=== PATIENT | male | born 1945 | race Caucasian/White ===

== ENCOUNTER → 2023-11-10 10:27 | Outpatient (REF) | payer MEDICARE, SELFPAY ==
[2023-11-10 12:47] LABS: % Basophils 0.6 % (0-2); % Eosinophils 1.8 % (0-6); % Immature Granulocytes 0.3 % (0-0.5); % Monocytes 7.2 % (1.7-9.3); % Neutrophils 74.1 % (42.2-75.2); Absolute Eosinophils 0.1 10^3/uL (0-0.7); Absolute Lymphocytes 1.2 10^3/uL (1.2-3.4); Absolute Monocytes 0.5 10^3/uL (0.1-0.6); Absolute Neutrophils 5.4 10^3/uL (1.4-6.5); Hematocrit 43.9 % (39.0-52.0); Hemoglobin 14.8 g/dL (13.0-18.0); Mean Corp Hgb Conc. 33.7 g/dL (33.0-37.0); Mean Corpuscular Hgb 32.5 pg (27.0-31.0); Mean Corpuscular Volume 96.3 fL (80.0-94.0); Mean Platelet Volume 11.4 fL (7.4-10.4); Nucleated Red Blood Cells % 0 % (-); Platelet Count 191 10^3/uL (130-400); Red Blood Cell Count 4.56 10^6/uL (4.70-6.10); Red Cell Dist. Width 12.4 % (11.5-14.5); White Blood Cell Count 7.3 10^3/uL (4.8-10.8)
[2023-11-10 12:57] LABS: Erythrocyte Sed Rate 12 mm/hour (0-20)
[2023-11-10 13:21] LABS: ALT (SGPT) 17 U/L (0-50); AST (SGOT) 25 U/L (17-59); Alkaline Phosphatase 67 U/L (38-126); Blood Urea Nitrogen 20 mg/dl (9-20); Calcium 9.3 mg/dl (8.4-10.2); Carbon Dioxide 27 mmol/L (22-30); Chloride 102 mmol/L (98-107); Glucose 86 mg/dl (70-99); Potassium 4.9 mmol/L (3.5-5.1); Sodium 142 mmol/L (135-145); Total Bilirubin 0.7 mg/dl (0.2-1.3); Total Protein 6.7 g/dl (6.3-8.2); eGFR > 60.00
[2023-11-12 08:03] LABS: ANA, IgG Reflex to HEp-2 None Detected (None Detected)
[2023-11-12 14:54] LABS: Rheumatoid Agglutinin Less Than 10 IU (<10 IU)
[2023-11-12 15:01] LABS: Lyme Antibody Screen, EIA Negative (Negative)
== END ==
LOC: HWLAB 10:27
PROVIDERS: REFERRING PHYSICIAN Family Medicine
DX: M25.50 Pain in unspecified joint (principal)
CPT/HCPCS: 36415; 80053; 85025; 85652; 86038; 86140; 86430; 86618

== ENCOUNTER → 2023-12-07 11:04 | Outpatient (REF) | payer MEDICARE, SELFPAY | LOC: HWRAD 11:04 | PROVIDERS: ATTENDING PHYSICIAN Physician Assistant; FAMILY PHYSICIAN Family Medicine | DX: M81.0 Age-related osteoporosis without current pathological fracture (principal) | CPT/HCPCS: 77080 ==

== ENCOUNTER → 2023-12-10 09:31 | Outpatient (REF) | payer MEDICARE, SELFPAY ==
[2023-12-10 10:58] LABS: Creatine Phosphokinase 59 U/L (55-170)
[2023-12-10 18:34] LABS: Hepatitis B Surface Antigen Negative (Negative)
[2023-12-10 18:52] LABS: Hepatitis B Core Ab, Total Negative (Negative); Hepatitis B Surface Antibody Positive
[2023-12-11 22:49] LABS: HLA-B27 Negative (Negative)
[2023-12-12 01:35] LABS: HCV Quant by NAAT IU/mL Not Detected; HCV Quant by NAAT Interp Not Detected (Not Detected); HCV Quant by NAAT Log IU/mL Not Detected log IU/mL
[2023-12-12 09:27] LABS: Quantiferon Mitogen minus NIL 9.96 IU/mL; Quantiferon NIL 0.04 IU/mL; Quantiferon Plus TB1 minus NIL 0.04 IU/mL (<=0.34); Quantiferon Plus TB2 minus NIL 0.01 IU/mL (<=0.34); Quantiferon TB Gold Plus Negative (Negative)
== END ==
LOC: REG 09:31
PROVIDERS: ATTENDING PHYSICIAN Physician Assistant; FAMILY PHYSICIAN Family Medicine
DX: J00-J99 Diseases of the respiratory system (principal); M06.4 Inflammatory polyarthropathy; M08.1 Juvenile ankylosing spondylitis; M25.50 Pain in unspecified joint; R53.1 Weakness; Z11.59 Encounter for screening for other viral diseases
CPT/HCPCS: 36415; 82550; 86480; 86704; 86706; 86812; 87340; 87522

== ENCOUNTER 2024-02-21 10:06 | Emergency (ER) | payer MEDICARE, SELFPAY ==
[2024-02-21 10:10] VITALS: BP 120/81
[2024-02-21] MEDS: NSS 1000 IV (11:10)
[2024-02-21 11:11] VITALS: BP 118/68
--- NOTE | 2024-02-21 11:12 | ED.GENMED ---
History of Present Illness
General
Chief Complaint: Abdominal Symptoms
Source: patient
Time Seen by Provider: 02/21/24 11:01
History of Present Illness
History of Present Illness:
78-year-old male with past medical history of rheumatoid arthritis presenting to the emergency department for evaluation of nausea vomiting and diarrhea that has been constant over the last 4 days, last night believes he could have potentially
syncopized and still felt unwell this morning prompting to bring him to the ER for further evaluation patient states he had 1 episode of watery diarrhea this morning. He denies any pain, urinary symptoms, recent travel, known sick contacts,
recent antibiotics however does note that at the end of November he had been started on hydroxychloroquine for his rheumatoid arthritis, developed a small rash and had this medication stopped but then restarted the hydroxychloroquine about 2
weeks ago. No other concerns at this time.
Past History
Past History
ED Past Medical History: Psychiatric (PTSD) and Other (Rheumatoid arthritis)
ED Past Surgical History: Orthopedic
Social History
Tobacco: Non-smoker
Alcohol: None
Drug: None
Personal:
Living: with family
Review of Systems
Review of Systems
All Other Systems: ROS reviewed and negative except as documented in HPI and ROS
Phy Exam
Physical Exam
Physical Exam:
GENERAL: Alert , in no apparent distress, somewhat pale
EYE: clear conjunctiva b/l
HEAD: NCAT
ENT: o/p clr, mmm.
CARDIAC: Regular rate and rhythm .
LUNGS: Clear breath sounds bilaterally, no acute respiratory distress, no wheezes/rales/rhonchi
ABDOMEN: Soft, without focal tenderness, no r/g, no cvat
NEUROLOGICAL: Alert and oriented
SKIN: Warm and dry, skin intact.
MUSCULOSKELETAL: No edema, well perfused.
PSYCH: Normal and appropriate interaction.
Scores
Heart Failure Risk
Heart Failure Risk Score: Not Applicable
Heart Score for Chest Pain Patients
STEMI patient?: Not applicable
Withdrawal Assessment of Alcohol
Withdrawal Assessment Completed?: Not applicable
Course
Orders/Labs/Results
Orders:
Orders
02/21/24 10:14
EKG [Electrocardiogram (*1)] Urgent
Reason for Study: Fatigue / Weakness
EKG- Treatment ONCE
02/21/24 11:02
Orthostatic VS- Treatment ONCE
STOOL [C difficile Antigen & Toxins] Urgent
JODY Source: Feces/Stool
Specimen Description:
Stool Culture Urgent
JODY Source: Feces/Stool
Specimen Description:
0.9% Sodium Chloride 1000 ml [Nss] 1,000 ml IV BOLUS
02/21/24 11:07
Complete Blood Count/With Diff Urgent
02/21/24 11:38
Comprehensive Metabolic Panel Urgent
Lipase Urgent
Abnormal Lab Results
02/21/24 02/21/24
11:07 11:38
WBC 4.7 L 10^3/uL
(4.8-10.8)
MCH 32.0 H pg
(27.0-31.0)
MPV 11.7 H fL
(7.4-10.4)
Absolute Lymphs (auto) 1.1 L 10^3/uL
(1.2-3.4)
Total Protein 5.7 L g/dl
(6.3-8.2)
Albumin 3.4 L g/dl
(3.5-5.0)
02/21/24 11:07
02/21/24 11:38
Vital Signs
Initial and Last Documented VS:
Initial Vital Signs
Temp Pulse Resp BP Pulse Ox
99.0 F 76 18 120/81 99
02/21/24 10:10 02/21/24 10:10 02/21/24 10:10 02/21/24 10:10 02/21/24 10:10
Last Documented Vital Signs
Temp Pulse Resp BP Pulse Ox
99.0 F 76 18 131/74 96
02/21/24 10:10 02/21/24 10:10 02/21/24 10:10 02/21/24 12:00 02/21/24 12:30
MDM/Problems Addressed
Differential Diagnosis Includes:
Gastroenteritis, norovirus, C. difficile colitis, other bacterial diarrhea, colitis, electrolyte derangement, dehydration, vagal event, orthostasis
MDM/Problems Addressed:
78-year-old male presenting to the ER for evaluation of 4 days of nausea vomiting and diarrhea, last night believes he could have potentially syncopized due to feeling generally weak. Patient is without any fevers or symptoms today although he
does note some watery stool prior to arrival. Only new medication would be hydroxychloroquine from about 2 weeks ago, do not believe this to be related to symptoms but certainly possible. Patient currently hemodynamically stable. Will check labs
and treat with fluid in the time being. Reassessment following. Will attempt for stool studies.
*Pulse Oximetry
Patient hypoxic: no
*Critical Care Note
Total Time (30-74mins, 75-104mins- exclusive of procedures): Not Applicable
Data Reviewed
Review of Other/Old Records Reveals: Labs
Patient Management
Escalation/DeEscalation of care consider admission/obs:
On reevaluation patient is feeling much better following IV fluids. He remains hemodynamically stable. Patient had a very mild leukopenia with a white blood cell count of 4.7. Electrolytes and kidney function within normal limits. Patient unable
to provide a stool sample. I did offer to allow him to stay in the ER for longer duration if he so chooses and attempts to obtain a stool study but patient prefers to be discharged home. Advise close follow-up with primary care provider. Aware of
return precautions
ED Attending Note
-
Portions of this chart may have been created with voice recognition software.� Occasional wrong word or��sound alike� substitutions may have occurred due to the inherent limitations of voice recognition software.
Discharge Plan
Departure
Patient Disposition: Home (Routine Discharge)
Date of Disposition: 02/21/24
Time of Disposition: 12:39
Patient with high blood pressure during this ER visit?: No
Discharge Problem:
Nausea and vomiting, Diarrhea
Instructions: Nausea and Vomiting, Adult (DC)
Referrals:
Adilia Ochoa, [Family Provider] -
Interventions
Interventions:
*Risk Screen - Suicide Last Done: 02/21/24 10:10
*General Assessment Last Done: 02/21/24 10:10
*Neglect/Abuse Screening Last Done: 02/21/24 10:10
*ED COVID-19 Vaccine History Last Done: 02/21/24 10:10
NL-Jhnzto-Idrcyeofjc Assessment Last Done: 02/21/24 11:23
Discharge Date and Time
Print Language: MOSOTHO
[2024-02-21 11:17] VITALS: BP 119/71; BP 120/70; BP 127/77; PULSE 58; PULSE 60; PULSE 70
[2024-02-21 11:19] VITALS: BP 127/77
[2024-02-21 11:20] VITALS: BP 120/70
[2024-02-21 11:28] LABS: % Basophils 0.2 % (0-2); % Eosinophils 1.1 % (0-6); % Immature Granulocytes 0.4 % (0-0.5); % Lymphocytes 23.8 % (20.5-51.1); % Monocytes 8.4 % (1.7-9.3); % Neutrophils 66.1 % (42.2-75.2); Absolute Eosinophils 0.1 10^3/uL (0-0.7); Absolute Lymphocytes 1.1 10^3/uL (1.2-3.4); Absolute Monocytes 0.4 10^3/uL (0.1-0.6); Absolute Neutrophils 3.1 10^3/uL (1.4-6.5); Hematocrit 46.1 % (39.0-52.0); Hemoglobin 15.8 g/dL (13.0-18.0); Mean Corp Hgb Conc. 34.3 g/dL (33.0-37.0); Mean Corpuscular Volume 93.5 fL (80.0-94.0); Mean Platelet Volume 11.7 fL (7.4-10.4); Nucleated Red Blood Cells % 0 % (-); Platelet Count 142 10^3/uL (130-400); Red Blood Cell Count 4.93 10^6/uL (4.70-6.10); Red Cell Dist. Width 13.9 % (11.5-14.5); White Blood Cell Count 4.7 10^3/uL (4.8-10.8)
[2024-02-21 11:59] LABS: ALT (SGPT) 21 U/L (0-50); AST (SGOT) 29 U/L (17-59); Albumin 3.4 g/dl (3.5-5.0); Alkaline Phosphatase 54 U/L (38-126); Blood Urea Nitrogen 16 mg/dl (9-20); Calcium 8.5 mg/dl (8.4-10.2); Carbon Dioxide 23 mmol/L (22-30); Chloride 107 mmol/L (98-107); Glucose 90 mg/dl (70-99); Lipase 100 U/L (23-300); Potassium 4.4 mmol/L (3.5-5.1); Sodium 139 mmol/L (135-145); Total Protein 5.7 g/dl (6.3-8.2); eGFR 56.58
[2024-02-21 12:00] VITALS: BP 131/74
== END 2024-02-21 13:08 | disposition home or self-care (01) ==
LOC: EMR 10:06
PROVIDERS: Physician Assistant Medical; EMERGENCY PHYSICIAN Student in an Organized Health Care Education/Training Program; FAMILY PHYSICIAN Family Medicine
DX: R19.7 Diarrhea, unspecified (principal); R11.2 Nausea with vomiting, unspecified
CPT/HCPCS: 99284; 96360; 80053; 83690; 85025; 93005

== ENCOUNTER → 2024-05-04 07:09 | Outpatient (REF) | payer MEDICARE, SELFPAY ==
[2024-05-04 07:57] LABS: % Basophils 0.5 % (0-2); % Eosinophils 2.1 % (0-6); % Immature Granulocytes 0.2 % (0-0.5); % Lymphocytes 19.1 % (20.5-51.1); % Monocytes 6.5 % (1.7-9.3); % Neutrophils 71.6 % (42.2-75.2); Absolute Eosinophils 0.1 10^3/uL (0-0.7); Absolute Lymphocytes 1.1 10^3/uL (1.2-3.4); Absolute Monocytes 0.4 10^3/uL (0.1-0.6); Absolute Neutrophils 4.2 10^3/uL (1.4-6.5); Hematocrit 47.3 % (39.0-52.0); Hemoglobin 15.9 g/dL (13.0-18.0); Mean Corp Hgb Conc. 33.6 g/dL (33.0-37.0); Mean Corpuscular Hgb 32.8 pg (27.0-31.0); Mean Corpuscular Volume 97.5 fL (80.0-94.0); Mean Platelet Volume 11.7 fL (7.4-10.4); Nucleated Red Blood Cells % 0 % (-); Platelet Count 167 10^3/uL (130-400); Red Blood Cell Count 4.85 10^6/uL (4.70-6.10); White Blood Cell Count 5.8 10^3/uL (4.8-10.8)
[2024-05-04 08:18] LABS: C-Reactive Protein < 5.00 mg/L (0.0-10.00)
[2024-05-04 08:26] LABS: ALT (SGPT) 35 U/L (0-50); AST (SGOT) 29 U/L (17-59); Albumin 4.3 g/dl (3.5-5.0); Alkaline Phosphatase 66 U/L (38-126); Blood Urea Nitrogen 23 mg/dl (9-20); Calcium 9.8 mg/dl (8.4-10.2); Carbon Dioxide 25 mmol/L (22-30); Chloride 106 mmol/L (98-107); Glucose 94 mg/dl (70-99); Potassium 5.1 mmol/L (3.5-5.1); Sodium 142 mmol/L (135-145); Total Bilirubin 0.8 mg/dl (0.2-1.3); Total Protein 6.5 g/dl (6.3-8.2); eGFR > 60.00
[2024-05-04 11:05] LABS: Erythrocyte Sed Rate 11 mm/hour (0-20)
== END ==
LOC: REG 07:09
PROVIDERS: ATTENDING PHYSICIAN Internal Medicine Rheumatology; FAMILY PHYSICIAN Family Medicine
DX: M06.00 Rheumatoid arthritis without rheumatoid factor, unspecified site (principal)
CPT/HCPCS: 36415; 80053; 85025; 85652; 86140

== ENCOUNTER → 2024-09-28 10:12 | Outpatient (REF) | payer MEDICARE, SELFPAY ==
[2024-09-28 10:31] LABS: Hematocrit 43.3 % (39.0-52.0); Hemoglobin 14.6 g/dL (13.0-18.0); Mean Corp Hgb Conc. 33.7 g/dL (33.0-37.0); Mean Corpuscular Volume 97.1 fL (80.0-94.0); Nucleated Red Blood Cells % 0 % (-); Platelet Count 167 10^3/uL (130-400); Red Cell Dist. Width 12.9 % (11.5-14.5)
[2024-09-28 11:18] LABS: ALT (SGPT) 22 U/L (0-50); AST (SGOT) 26 U/L (17-59); Albumin 4.1 g/dl (3.5-5.0); Alkaline Phosphatase 54 U/L (38-126); Blood Urea Nitrogen 20 mg/dl (9-20); Calcium 9.7 mg/dl (8.4-10.2); Carbon Dioxide 25 mmol/L (22-30); Chloride 107 mmol/L (98-107); Glucose 62 mg/dl (70-99); Potassium 4.9 mmol/L (3.5-5.1); Sodium 139 mmol/L (135-145); Total Protein 6.6 g/dl (6.3-8.2); eGFR > 60.00
[2024-09-28 11:20] LABS: C-Reactive Protein < 5.00 mg/L (0.0-10.00)
== END ==
LOC: REG 10:12
PROVIDERS: ATTENDING PHYSICIAN Internal Medicine Rheumatology; FAMILY PHYSICIAN Family Medicine
DX: M06.00 Rheumatoid arthritis without rheumatoid factor, unspecified site (principal); Z79.899 Other long term (current) drug therapy
CPT/HCPCS: 36415; 80053; 85025; 85652; 86140

== ENCOUNTER → 2024-12-07 07:38 | Outpatient (REF) | payer MEDICARE, SELFPAY ==
[2024-12-07 08:13] LABS: Hematocrit 43.7 % (39.0-52.0); Hemoglobin 14.4 g/dL (13.0-18.0); Mean Corp Hgb Conc. 33.0 g/dL (33.0-37.0); Mean Corpuscular Volume 102.6 fL (80.0-94.0); Nucleated Red Blood Cells % 0 % (-); Platelet Count 144 10^3/uL (130-400); Red Cell Dist. Width 14.2 % (11.5-14.5)
[2024-12-07 08:58] LABS: ALT (SGPT) 19 U/L (0-50); AST (SGOT) 24 U/L (17-59); Albumin 4.0 g/dl (3.5-5.0); Alkaline Phosphatase 58 U/L (38-126); Blood Urea Nitrogen 29 mg/dl (9-20); C-Reactive Protein < 5.00 mg/L (0.0-10.00); Calcium 9.2 mg/dl (8.4-10.2); Carbon Dioxide 26 mmol/L (22-30); Chloride 107 mmol/L (98-107); Glucose 96 mg/dl (70-99); Potassium 5.0 mmol/L (3.5-5.1); Sodium 139 mmol/L (135-145); Total Protein 6.2 g/dl (6.3-8.2); eGFR > 60.00
[2024-12-08 16:38] LABS: Hepatitis B Surface Antigen Negative (Negative)
[2024-12-08 16:56] LABS: Hepatitis C Antibody Negative (Negative)
== END ==
LOC: REG 07:38
PROVIDERS: ATTENDING PHYSICIAN Physician Assistant; FAMILY PHYSICIAN Family Medicine
DX: K75.9 Inflammatory liver disease, unspecified (principal); M06.00 Rheumatoid arthritis without rheumatoid factor, unspecified site; Z22.7 Latent tuberculosis; Z79.899 Other long term (current) drug therapy
CPT/HCPCS: 36415; 80053; 85025; 85652; 86140; 86480; 86704; 86803; 87340